=== PATIENT | male | born 1985 | race Caucasian/White ===

== ENCOUNTER 2017-02-13 08:41 | Emergency (ER) | payer OTHER ==
[2017-02-13 08:47] VITALS: TEMP 97.5
--- NOTE | 2017-02-13 09:24 | EDPHY ---
H & P Time Seen by Provider: 02/13/17 08:57 HPI/ROS: HPI Finger lacerations. 31-year-old male by private vehicle with his co-worker. He is right-hand dominant. He was using a band saw to cut aluminum when he accidentally cut the 2nd and 3rd right hand digits with the band saw, radial aspect, just proximal to the PIP joint on the 2nd digit and just distal to the IP joint on the 3rd digit. Denies loss of sensation or strength in the digits. No other injury or complaint. He has had a tetanus shot within the last 3 years. ROS: Constitutional: No fever, no chills. No weakness. Musculoskeletal: No extremity pain except noted. Skin: No rashes. Lacerations as above. Neurological: No focal weakness or altered sensation. Past medical history: Denies any past medical history. No allergy medications. He does not have a primary care physician. Social history: Here with his co-worker. Nonsmoker. Physical Exam: General Appearance: Alert, no distress. This patient is responding to questions appropriately and in full sentences. This patient appears well- hydrated and well-nourished. Eyes: Pupils equal and round no pallor or injection. No lid edema, erythema or injection. Right hand exam: Examination of the right 2nd digit is significant for a linear jagged laceration which is just proximal to the DIP joint on the radial aspect of the finger. On gross exploration there does not appear to be any bony or joint involvement on gross exploration. His extensor tendon function is intact. His flexor digitorum and profundus function is intact. He has some paresthesia distal to wound on the radial aspect of the digit. The right 2nd digit is otherwise neurovascularly intact. Examination of the right 3rd digit is significant for a linear jagged laceration, radial aspect, just distal to the PIP joint it involves approximately half the circumference of the digit. There does not appear to be any bony or joint involvement on gross exploration. The extensor tendon function is intact. The flexor digitorum and profundus tendon function is intact. Again mild paresthesia on the radial aspect of the digit distal to the wound. The finger is otherwise neurovascularly intact. Please see wound care note for further details. Neurological: Motor sensory function is grossly intact. Cranial nerves are normal. Gait is normal. Skin: Warm and dry, no rashes. Lacerations as above. Extremities are symmetrical except noted. All joints range without pain or impingement. Psychiatric: No agitation. No depression. Database: EKG: Imaging: Right hand x-ray 2nd digit: No evidence of fracture, subluxation, dislocation. No evidence of radiopaque foreign body. Interpreted by me. Right hand x-ray 3rd digit: No evidence of fracture, subluxation, dislocation. No evidence of radiopaque foreign body. Interpreted by me. Procedures: Procedure: Laceration repair. Verbal consent was obtained from the patient. The 3 cm laceration on the radial aspect distal index finger was anesthetized with digital block in the usual fashion. 0.5% bupivacaine without epinephrine was used. The wound was irrigated, draped and explored to its base with a gloved finger. There were no deep structures involved. No tendon injury was identified. No foreign body was identified. The wound was repaired with 8, 4.0 Prolene sutures placed in interrupted fashion. The wound repair was tolerated well and there were no complications. The procedure was performed by myself. Procedure: Laceration repair. Verbal consent was obtained from the patient. The 3.5 cm laceration on the radial aspect, 3rd digit, was anesthetized by digital block in the usual fashion. 0.5% bupivacaine without epinephrine was used. The wound was irrigated, draped and explored to its base with a gloved finger. There were no deep structures involved. No tendon injury was identified. No foreign body was identified. The wound was repaired with 12, 4.0 Prolene sutures placed in interrupted fashion. The wound repair was tolerated well and there were no complications. The procedure was performed by myself. Emergency department course: After my evaluation and digital block, the patient was sent for x-rays. Suture repair as above. Wound care was discussed with the patient in detail. He will follow up with his workman's Comp primary care physician for re-evaluation in 1- 2 days. I also will refer him to a hand specialists for re-evaluation as well. He will be placed on Keflex, 500 mg four times daily for the next 5 days. This was a dirty wound with contamination from aluminum shavings. He understands his follow-up. Return to emergency department precautions reviewed. Wound infection precautions reviewed. All of his questions were answered. He was discharged from emergency department in good condition. Differential Diagnosis: The differential diagnosis on this patient includes but is not limited to lacerations to the 2nd and 3rd digits. Foreign body, articular involvement, bony injury, tendon injury, significant neurovascular injury unlikely. This represents a partial list of diagnoses considered. These considerations are based on history, physical exam, past history, reassessment and diagnostic testing. Smoking Status: Former smoker Constitutional: Initial Vital Signs Temperature (C) 36.4 C 02/13/17 08:42 Heart Rate 61 02/13/17 08:42 Respiratory Rate 18 02/13/17 08:42 Blood Pressure 162/102 H 02/13/17 08:42 O2 Sat (%) 98 02/13/17 08:42 O2 Delivery Mode Room Air Allergies/Adverse Reactions: No Known Allergies Allergy (Unverified 06/05/14 15:20) Home Medications: Medication Instructions Recorded No Home Meds 06/05/14 Cephalexin [Keflex (*)] 500 mg PO Q6 5 Days 02/13/17 Departure - Departure Disposition: Home, Routine, Self-Care Clinical Impression: Finger laceration, Laceration of index finger, Laceration of middle finger Condition: Good Instructions: Care For Your Stitches (ED), Laceration (ED) Additional Instructions: Read and follow provided instructions. Sutures are to be removed in 10-12 days. Follow-up with your workman's Comp physician in 1-2 days for re-evaluation. I have also provided you with a referral to a hand specialist to re-evaluated your hand. If it is determined that you have any significant joint involvement or tendon involvement this person will manage this. Take antibiotics as prescribed through entire course of treatment. Ibuprofen dosin mg every 6 hours with meals for the next 3 days only. Return to the emergency department for worsening pain, discoloration, loss of sensation, signs of infection or other serious concerns. Referrals: Noelle Valentine MD [Medical Doctor] - As per Instructions NONE *PRIMARY CARE P,. [Primary Care Provider] - As per Instructions Prescriptions: Cephalexin [Keflex (*)] 500 mg PO Q6 5 Days
[2017-02-13] MEDS ORDERED: CEPHALEXIN 500 MG CAP PO ONE (11:11)
[2017-02-13 11:41] VITALS: BP 158/90; PULSE 59; RESP 16; O2SAT 97
== END 2017-02-13 11:40 | disposition home or self-care (01) ==
PROC: 0HQFXZZ Repair Right Hand Skin, External Approach (ICD-10-PCS; principal; 2017-02-13)
DX: S61.210A Laceration without foreign body of right index finger without damage to nail, initial encounter (principal); S61.212A Laceration without foreign body of right middle finger without damage to nail, initial encounter; Z87.891 Personal history of nicotine dependence; W31.2XXA Contact with powered woodworking and forming machines, initial encounter